=== PATIENT | female | born 1975 | race Caucasian/White ===

== ENCOUNTER 2017-06-04 00:38 | Emergency (ER) | payer SELFPAY ==
[~2017-06-04] VITALS: Ht 160 cm; Wt 60.0 kg
[~2017-06-04 00:38] MED LIST: CIPR500T4 PO; DIFL500T PO; GOODY POWDER PO; GUAI100S6 PO; IBUP800T23 PO; METR-1 PO; NAPR500 PO; OXYC-360 PO; PROM25SU8 PO; ROBA750T3 PO
[2017-06-04 00:42] VITALS: BP 142/100; PULSE 111; RESP 18; TEMP 98.1; O2SAT 96
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
[2017-06-04 01:58] LABS: BACTERIA, URINE RARE /hpf; BLOOD, URINE SMALL (NEG); COMMENT (UR) CULTURE INDICATED; CULTURE IF INDICATED CULTURE INDICATED; GLUCOSE,URINE NEG (NEG); HYALINE CAST, URINE 30 /lpf (RARE); KETONE, URINE TRACE mg/dL (NEG); MUCUS URINE FEW /lpf (OCC); NITRITE,URINE NEG (NEG); PH, URINE 5.5 (5.0-8.5); SQUAMOUS EPITHELIAL CELL URINE 14 /hpf (0-5); URINE COLOR YELLOW (YELLW/STRAW)
[2017-06-04] MEDS ORDERED: PROZ20CA11 PO (02:03)
[2017-06-04] MEDS ORDERED: CLON0.1T PO (02:03)
[2017-06-04] MEDS ORDERED: SUBO8MIS SL (02:03)
[2017-06-04 02:06] LABS: AUTOMATED NEUTROPHIL # 12.2 TH/MM3 (1.8-7.7); BASOPHIL # 0.1 TH/MM3 (0-0.2); BASOPHIL % 0.4 % (0.0-2.0); EOSINOPHIL # 0.1 TH/MM3 (0-0.4); EOSINOPHIL % 0.6 % (0.0-4.0); HEMATOCRIT 50.2 % (35.0-46.0); LYMPH % 17.1 % (9.0-44.0); LYMPHOCYTE # 2.7 TH/MM3 (1.0-4.8); MEAN CELL VOLUME 92.6 FL (80.0-100.0); MEAN CORPUSCULAR HEMOGLOBIN 31.3 PG (27.0-34.0); MEAN CORPUSCULAR HGB CONC 33.8 % (32.0-36.0); MONO % 5.7 % (0.0-8.0); NEUT % 76.2 % (16.0-70.0); PLATELET COUNT 383 TH/MM3 (150-450); RED BLOOD COUNT 5.42 MIL/MM3 (4.00-5.30); RED CELL DISTRIBUTION WIDTH 13.2 % (11.6-17.2)
[2017-06-04 02:11] LABS: ANION GAP 8 MEQ/L (5-15); AST (GOT) 34 U/L (15-37); BICARBONATE 24.3 MEQ/L (21.0-32.0); BLOOD UREA NITROGEN 12 MG/DL (7-18); CHLORIDE 107 MEQ/L (98-107); GLOMERULAR FILTRATION RATE 81 ML/MIN (>89); POTASSIUM 4.2 MEQ/L (3.5-5.1); SODIUM (NA) 139 MEQ/L (136-145)
[2017-06-04 02:20] LABS: ALKALINE PHOSPHATASE 65 U/L (45-117); ALT (GPT) 45 U/L (10-53); TOTAL BILIRUBIN ADULT 0.5 MG/DL (0.2-1.0)
[2017-06-04 02:22] LABS: ACETAMINOPHEN LESS THAN 2.0 MCG/ML (10.0-30.0); ALCOHOL LESS THAN 3 MG/DL (0-5)
[2017-06-04 02:32] LABS: HEMO FLAGS AUTO DIFF
[2017-06-04 02:33] LABS: PLATELET ESTIMATE SMEAR NORMAL (NORMAL); PLATELET MORPHOLOGY NORMAL (NORMAL); SCAN/DIFF AUTO DIFF CONFIRMED
[2017-06-04] MEDS ORDERED: NITROFURANTOIN MONOHYD MACROCR 100 MG CAP PO ONE (03:00)
--- NOTE | 2017-06-04 13:53 | EKG ---
Date Performed: 06/04/2017 Time Performed: 01:41:41 PTAGE: 41 years EKG: SINUS TACHYCARDIA POSSIBLE LEFT ATRIAL ENLARGEMENT ABNORMAL RHYTHM ECG PREVIOUS TRACING : 08/02/2012 17.30 DOCTOR: Jose Springer Interpretating Date/Time 06/04/2017 13:45:29
== END 2017-06-04 04:56 | disposition left against medical advice (07) ==
LOC: NEPC 00:38
DX: E86.0 Dehydration (principal); N39.0 Urinary tract infection, site not specified; R94.31 Abnormal electrocardiogram [ECG] [EKG]; Z72.0 Tobacco use; R82.90 Unspecified abnormal findings in urine; Z79.899 Other long term (current) drug therapy
CPT/HCPCS: 80053; 80307; 81001; 84443; 84703; 85025; 87086; 93005; 99284